=== PATIENT | female | born 1945 | race Caucasian/White ===

== ENCOUNTER 2020-03-25 07:11 | Outpatient (RCR) | payer MEDICARE ==
[~2020-03-25] VITALS: Ht 162.6 cm; Wt 54.5 kg
[2020-03-25] MEDS ORDERED: PITA2TAB2 PO (10:51)
[2020-03-25] MEDS ORDERED: LEVO75TA6 PO (10:51)
== END 2020-06-23 | disposition home or self-care (01) ==
LOC: EDSEX → PREOP 07:11
PROVIDERS: ATTEND Specialist
DX: Z01.818 Encounter for other preprocedural examination (principal)

== ENCOUNTER 2020-04-01 07:42 | Day surgery (SDC) | payer MEDICARE, OTHER ==
[~2020-04-01] VITALS: Ht 162.6 cm; Wt 54.5 kg
[~2020-04-01 07:42] MED LIST: LEVO75TA6 PO; PITA2TAB2 PO
[2020-04-01] MEDS ORDERED: POVIDONE (BETADINE) OPHTH SOLN 5% 30 ML OP ONE (07:45)
[2020-04-01] MEDS ORDERED: MOXIFLOXACIN OPHTH SOLN 5 MG/ML 0.3 ML SYRINGE OP ONE (07:45)
[2020-04-01] MEDS ORDERED: TIMOLOL MALEATE 0.5% 5 ML (TIMOPTIC) BTL OU PRN (07:45)
[2020-04-01] MEDS ORDERED: LIDOCAINE PF 1% 2 ML VIAL IR PRN (07:45)
[2020-04-01 07:53] VITALS: BP 152/82
[2020-04-01] MEDS: TETRACAINE 0.5% OPHTH SOLN 4 ML BTL (SINGLE DOSE ONLY) OU PRN ×4 (07:56→08:29)
[2020-04-01] MEDS: CYCLOPENTOLATE 1% (CYCLOGYL) 2 ML DROPS OP SCH ×3 (08:10→08:29)
[2020-04-01] MEDS: PHENYLEPHRINE 10% OPHTH (NEO-SYN) 5 ML BTL OU SCH ×3 (08:11→08:29)
[2020-04-01] MEDS ORDERED: acetaZOLAMIDE ER 500 MG CAP (DIAMOX SEQUELS) PO ONE (08:30)
[2020-04-01] MEDS ORDERED: MIDAZOLAM 2 MG/2 ML (VERSED) VIAL ONE (08:39)
--- NOTE | 2020-04-01 08:43 | Ophthalmologist Pre-Op Note ---
Pre-Operative Progress Note H&P Reviewed The H&P was reviewed, patient examined and no changes noted. Date H&P Reviewed: April 01, 2020 Time H&P Reviewed: 08:43 Pre-Op Dx Cataract, Right Eye MARY DIEGO MD April 01, 2020 08:43
--- NOTE | 2020-04-01 09:09 | Ophthalmology Operative Report ---
Cataract removal/placement IOL PREOPERATIVE DIAGNOSIS: Cataract Right Eye POSTOPERATIVE DIAGNOSIS: Cataract Right Eye PROCEDURE: Cataract removal and placement of posterior chamber implant, right eye SURGEON: Bang Diego ANESTHESIA: Topical with sedation COMPLICATIONS: None ESTIMATED BLOOD LOSS: Minimal DESCRIPTION OF PROCEDURE: After proper informed consent was obtained, the patient, a 74 female, was taken to the Operating Room and the right eye was anesthetized with tetracaine. The right eye was then prepped and draped in the usual manner. A wire lid speculum was placed. A paracentesis was made at the left hand position. Preservative free lidocaine was injected into the anterior chamber followed by viscoelastic. A clear corneal incision was made in the temporal position. A capsulorrhexis was preformed and the central nuclear and cortical material were removed. The posterior capsule was polished and Andrea 24.0 TFNT00 IOL was placed into the capsular bag. The residual viscoelastic was aspirated and balanced saline solution was injected into the anterior chamber. Moxifloxacin was injected into the anterior chamber. The wound was checked and found to be water tight. The patient tolerated the procedure well without complications. BANG DIEGO MD April 01, 2020 09:09
[2020-04-01 09:25] VITALS: BP 122/71
--- OUTSIDE RECORDS SUMMARY | 2020-04-01 09:28 | XMS REPORT | Continuity of Care Document ---
Demographics Preferred Language Unknown Marital Status Unknown Moravian Affiliation Unknown Race Unknown Ethnic Group Unknown Author Organization Unknown Address Unknown Phone Unavailable Allergies Active Description Code Type Severity Reaction Onset Reported/Identified Relationship to Patient Clinical Status Yes Sulfa (Sulfonamide Antibiotics) [id number] Drug Allergy Unknown N/A Medications There is no data. Problems There is no data. Procedures There is no data. Results Test Result Range COVID-19 ([facility]) - 03/28/20 13:28 Encounters ACCT No. Visit Date/Time Discharge Status Pt. Type Provider Facility Loc./Unit Complaint [id number] 03/28/2020 12:20:00 Document Registration [id number] 03/25/2020 07:11:00 23:59:59 CLS Outpatient MARY DIEGO MD [facility] PREOP CATARACT RIGHT EYE [id number] 04/01/2020 07:42:[address] Outpatient MARY DIEGO MD [facility] SDC CATARACT RIGHT EYE
--- NOTE | 2020-04-01 11:21 | Anesthesia-General Post-Op ---
MAC Patient Condition Mental Status/LOC: Same as Preop Cardiovascular: Satisfactory Nausea/Vomiting: Absent Respiratory: Satisfactory Pain: Controlled Complications: Absent Post Op Complications Complications None Follow Up Care/Instructions Patient Instructions None needed. Anesthesiology Discharge Order Discharge Order Patient is doing well, no complaints, stable vital signs, no apparent adverse anesthesia problems. No complications reported per nursing. MONICA PARIKH CRNA April 01, 2020 11:21
== END 2020-04-01 09:25 | disposition home or self-care (01) ==
LOC: SDC 07:42 → EDSEX 09:00 → SDC 09:25
PROVIDERS: ATTEND Specialist
DX: H25.11 Age-related nuclear cataract, right eye (principal); E78.5 Hyperlipidemia, unspecified; E78.00 Pure hypercholesterolemia, unspecified; E03.9 Hypothyroidism, unspecified; Z79.899 Other long term (current) drug therapy; Z88.2 Allergy status to sulfonamides; Z90.89 Acquired absence of other organs; Z90.11 Acquired absence of right breast and nipple